=== PATIENT | female | born 1985 | race Two or more races ===

== ENCOUNTER → 2017-01-29 | Outpatient (CLI) | payer OTHER | END | disposition home or self-care (01) | LOC: RAD 09:10 | PROVIDERS: ATTEND Obstetrics & Gynecology | DX: O34.11 Maternal care for benign tumor of corpus uteri, first trimester (principal); D25.9 Leiomyoma of uterus, unspecified; Z3A.01 Less than 8 weeks gestation of pregnancy | CPT/HCPCS: 76801 ==